=== PATIENT | male | born 1980 | race African-American/Black ===

== ENCOUNTER 2022-01-31 09:47 | Emergency (ER) | payer BC, SELFPAY ==
[2022-01-31 09:53] VITALS: BP 147/91; PULSE 76; RESP 18; TEMP 36.9; O2SAT 99
--- NOTE | 2022-01-31 10:23 | ED.EXTPRO ---
HPI - Extremity Problem General Chief complaint: Extremity Problem,Nontraumatic Stated complaint: right hand swelling Time Seen by Provider: 01/31/22 10:01 History of Present Illness HPI Narrative: 41-year-old male presents the emergency room for evaluation of redness, swelling and pain to his fifth digit of his right hand. Patient states he works as a [employer] and might of accidentally cut his finger. Noticed a small amount of redness and swelling around the cut. Patient states he was seen at urgent care yesterday for expanding redness swelling and pain around the wound and was diagnosed with cellulitis. Patient was initiated on Keflex. Presents today because the redness and the swelling have progressed past the MCP joint Related Data Allergies Allergy/AdvReac Type Severity Reaction Status Date / Time No Known Allergies Allergy Verified 01/31/22 09:57 Review of Systems Review of Systems: CONSTITUTIONAL: Denies fever, chills, or sweats. EYES: Denies visual changes, redness, or discharge. ENT: Denies rhinorrhea, congestion, sore throat, or otalgia. CARDIOVASCULAR: Denies chest pain, palpitations, or edema. RESPIRATORY: Denies cough or dyspnea. GASTROINTESTINAL: Denies abdominal pain, nausea, vomiting, or diarrhea. GENITOURINARY: Denies dysuria or hematuria. SKIN: Reports finding swelling and pain to the right hand MUSCULOSKELETAL: Denies back pain, joint pain, or myalgia. NEUROLOGIC: Denies headache, numbness, dizziness, or weakness. PSYCHIATRIC: Denies anxiety or depression. Exam Narrative: GENERAL: Well-appearing, well-nourished, no physical limitations, and in no acute distress. HEAD: Normocephalic, atraumatic. EYES: Conjunctivae normal, PERRLA and EOMI. CHEST: Clear to auscultation. No respiratory distress. No wheezes rales or rhonchi. No tenderness. HEART: Regular rate and rhythm. No murmur heard. Normal peripheral pulses. BACK: No CVA tenderness; No cervical/thoracic/lumbar tenderness, step-offs, bony abnormality; FROM EXTREMITIES: Normal range of motion. No edema. No clubbing or cyanosis SKIN: Right hand: Erythema, warmth, swelling, tenderness to the right fifth digit extending to the radiocarpal joint. No signs of lymphangitic spread. neurovascular is intact fifth digit NEURO: No focal deficits. Alert and oriented x3. MAEW. CN's II-XI intact bilaterally, normal gait PSYCH: Cooperative. Normal mood and affect. Course Vital Signs Vital signs: Vital Signs Temperature 36.9 C 01/31/22 09:53 Pulse Rate 76 01/31/22 09:53 Respiratory Rate 18 01/31/22 09:53 Blood Pressure 147/91 H 01/31/22 09:53 Pulse Oximetry 99 01/31/22 09:53 Oxygen Delivery Room Air 01/31/22 09:53 Temperature 36.9 C 01/31/22 09:53 Pulse Rate 76 01/31/22 09:53 Respiratory Rate 18 01/31/22 09:53 Blood Pressure 147/91 H 01/31/22 09:53 Pulse Oximetry 99 01/31/22 09:53 Oxygen Delivery Room Air 01/31/22 09:53 Discharge Plan Discharge Clinical Impression: Cellulitis Patient Disposition: Home, Self-Care Condition: Stable Instructions: Antibiotic Form, Cellulitis (ED) Additional Instructions: Continue taking your cephalexin and naproxen as previously prescribed. Your symptoms should start to improve 48 hours after initiating antibiotics. Prescriptions: New doxycycline monohydrate 100 mg capsule 100 mg PO BID 7 Days Qty: 14 0RF Follow-up/Referrals: Adal,Daniel Huynh MD [Non-Staff] - Time of Disposition: 10:21
[2022-01-31 11:34] VITALS: BP 147/79; PULSE 82; RESP 14; O2SAT 100
== END 2022-01-31 11:39 | disposition home or self-care (01) ==
PROVIDERS: Emergency Provider Nurse Practitioner Family
DX: L03.113 Cellulitis of right upper limb (principal)
CPT/HCPCS: 99283

== ENCOUNTER 2024-10-11 14:28 | Emergency (ER) | payer BC, SELFPAY ==
[2024-10-11 15:00] VITALS: BP 155/103; PULSE 69; RESP 16; TEMP 36.6; O2SAT 100
--- NOTE | 2024-10-11 15:40 | ED_ITS ---
HPI - Skin/Abscess/Foreign Bdy General Chief complaint: Skin/Abscess/Foreign Body Stated complaint: anscess Time Seen by Provider: 10/11/24 15:22 History of Present Illness HPI narrative: Patient is a 43-year-old male who presents to the ER with complaints of a lump under his right arm. He reports he 1st noticed it approximately 6 days ago. Patient reports that started out as a pimple and has grown. He denies any recent fevers, discharge from the site, decreased range of motion in his right shoulder or right elbow, for severe pain. Patient reports he has a history of abscesses and his last one was in May 2024. He reports he has never required an abscess to be drained. Patient endorses a history of hyperlipidemia, but denies any history of high blood pressure or diabetes. Related Data Allergies Allergy/AdvReac Type Severity Reaction Status Date / Time No Known Allergies Allergy Verified 10/11/24 14:30 Review of Systems Review of Systems: All systems reviewed & are unremarkable except as noted in HPI and below Exam Narrative: GENERAL: Well appearing, well-nourished, non-toxic, in no acute distress. HEAD: Normocephalic, atraumatic. NECK: Supple. No adenopathy, no masses. RESPIRATORY: Airway patent, respirations nonlabored. Clear to auscultation bilaterally, no rales, rhonchi, wheezing. CARDIOVASCULAR: Regular rate and rhythm without murmurs, rubs, or gallops. Peripheral pulses 2+ and equal bilaterally. ABDOMINAL: Soft, nontender, nondistended, no hepatosplenomegaly. Normoactive BS. MUSCULOSKELETAL: Moves all extremities. Strength/ROM intact without gross deformities. SKIN: Warm, dry, normal color. No rashes. R armpit palpable abscess approximately dime-sized, no drainage, no redness NEURO: A&O X3. Speech clear. Cranial nerves II-XII intact. No ataxic movements. PSYCHIATRIC: Appropriate mood and affect. Normal interaction. Course Vital Signs Vital signs: Vital Signs Temperature 36.6 C 10/11/24 15:00 Pulse Rate 69 10/11/24 15:00 Respiratory Rate 16 10/11/24 15:00 Blood Pressure 155/103 H 10/11/24 15:00 Pulse Oximetry 100 10/11/24 15:00 Temperature 36.6 C 10/11/24 15:00 Pulse Rate 69 10/11/24 15:00 Respiratory Rate 16 10/11/24 15:00 Blood Pressure 155/103 H 10/11/24 15:00 Pulse Oximetry 100 10/11/24 15:00 Procedures Abscess I/D other: Date of Incision: 10/11/24 Time of Incision: 17:00 Side (if applicable): right Local Anesthetic: lidocaine 1% and with epi Amount of anesthesia used (mL): 8 Technique: incised with #11 blade Amount of fluid expressed (mL): 2 Irrigation: Yes Packing used?: none I&D Results: Pus and Blood MDM - Skin/Abscess/Foreign Bdy MDM Narrative Medical decision making narrative: Patient is a 43-year-old male who presents to the ER with complaints of a lump under his right arm. He reports he 1st noticed it approximately 6 days ago. Patient reports that started out as a pimple and has grown. He denies any recent fevers, discharge from the site, decreased range of motion in his right shoulder or right elbow, for severe pain. Patient reports he has a history of abscesses and his last one was in May 2024. He reports he has never required an abscess to be drained. Patient endorses a history of hyperlipidemia, but denies any history of high blood pressure or diabetes. Labs Ordered: Aerobic/anaerobic swab Imaging Ordered: None necessary Medications Ordered: Lidocaine with epinephrine Diagnosis: Right armpit abscess Patient Education/Shared MDM: Results of I & D shared with patient. He is requesting pain medication following the I & D. Patient strongly advised to complete his full dose of antibiotics and follow-up with his PCP as soon as possible. He will be discharged home with a prescription for Doxycycline. Strict return precautions provided. Patient verbalized understanding and is in agreement with plan. Vital signs stable at time of discharge. All questions answered. Differential Diagnosis Differential diagnosis: Likely abscess of skin or subcutaneous tissue and cellulitis Discharge Plan Discharge Clinical Impression: Abscess of skin or subcutaneous tissue Patient Disposition: Home Condition: Stable Instructions: Antibiotic Form, Abscess (ED) Additional Instructions: Please return to the ER with any worsening symptoms. Follow-up with primary care provider as soon as possible. You may take Tylenol and ibuprofen together for pain control for 3-4 days. Please complete your full dose of antibiotics. Patient Language: Korean Prescriptions: New doxycycline monohydrate 100 mg capsule 100 mg PO BID Qty: 14 0RF No Action doxycycline monohydrate 100 mg capsule 100 mg PO BID 7 Days Qty: 14 0RF Follow-up/Referrals: PHYSICIAN,[facility]GER [facility] [employer] [Primary Care Provider] - Stand Alone Forms: Work/School Release IP Time of Disposition: 17:06
[2024-10-11 16:16] VITALS: BP 153/85; PULSE 78; RESP 16; TEMP 36.6; O2SAT 100
[2024-10-11 17:15] VITALS: BP 152/80; PULSE 76; RESP 16; TEMP 36.5; O2SAT 98
[2024-10-11] MEDS: IBUPROFEN 400 MG TABLET 800 MG PO (18:06)
[2024-10-11] MEDS: DOXYCYCLINE HYCLATE 100 MG TABLET PO (18:06)
== END 2024-10-11 18:00 | disposition home or self-care (01) ==
PROVIDERS: Emergency Provider Registered Nurse
DX: L02.411 Cutaneous abscess of right axilla (principal); E78.5 Hyperlipidemia, unspecified
CPT/HCPCS: 10060; 99283; A9270